=== PATIENT | female | born 1990 | race Caucasian/White ===

== ENCOUNTER 2022-12-27 10:34 | Emergency (ER) | payer BC ==
[~2022-12-27] VITALS: Ht 157.5 cm; Wt 68.0 kg
[2022-12-27 10:55] VITALS: BP_SYST 144; PULSE 87; RESP 18; TEMP 97.6; O2SAT 97
[2022-12-27 11:52] LABS: INFLUENZA TYPE A Negative (NEGATIVE); INFLUENZA TYPE B NEGATIVE (NEGATIVE)
[2022-12-27] MEDS ORDERED: PSEU30TA36 PO (11:59)
[2022-12-27] MEDS ORDERED: DIPH25CA83 PO (12:00)
== END 2022-12-27 12:15 | disposition home or self-care (01) ==
LOC: SED 10:34
DX: J40 Bronchitis, not specified as acute or chronic (principal); R05.9 Cough, unspecified; R09.81 Nasal congestion; J02.9 Acute pharyngitis, unspecified; Z79.899 Other long term (current) drug therapy; Z20.822 Contact with and (suspected) exposure to COVID-19
CPT/HCPCS: 36415; 71045; 99284